=== PATIENT | male | born 1935 | race Caucasian/White ===

== ENCOUNTER 2020-02-01 14:45 | Inpatient (IN) | payer MEDICARE, OTHER ==
[~2020-02-01] VITALS: Ht 180.3 cm; Wt 79.4 kg
[2020-02-01] MEDS ORDERED: SODIUM CHLORIDE 0.9% 1000ML 1,000 ML IV STA (15:54)
[2020-02-01] MEDS ORDERED: PIPER-TAZ 3.375 GM 50 ML IV STA (15:54)
--- NOTE | 2020-02-01 16:09 | Emergency Department Note ---
History of Present Illnes History of Present Illness Chief Complaint: General Medicine Complaints History of Present Illness This is a 84 year old male . c/o redness swelling r arm since december failed out pt tx sent to ed for evbal poss admit by Dr Anju Weeks Chief Complaint Comment here for cellulitis to the right upper arm since mid December sent by Dr. Weeks for evaluation and treatment. Historian: Patient, Family Member Arrival Mode: Car Onset (how long ago): month(s) (x1 month) Severity: moderate Onset quality: gradual Duration (how long): month(s) (x 1 month) Timing of current episode: constant Progression: worsening Context: recent illness, recent surgery, recent immobilization, recent travel, trauma/injury, new medications, hx of DVT/PE, non-compliance w/ medications, other Relieving factors: none Exacerbating factors: none Associated symptoms: denies other symptoms Treatments prior to arrival: other (clinda doxy) (EMMANUEL ROMERO NP) Past Medical/Family History Physician Review I have reviewed the patient's past medical and family history. Any updates have been documented here. (EMMANUEL ROMERO NP) Past Medical History Recent Fever: No Clinical Suspicion of Infectio: No New/Unexplained Change in Ment: No Past Medical History: Hypertension, Diabetes, Hyperlipedemia Past Surgical History: None (EMMANUEL ROMERO NP) Social History Smoking Cessation: Never Smoker Alcohol Use: None Any Illegal Drug Use: No TB Exposure/Symptoms: No (EMMANUEL ROMERO NP) Family History Family history of heart diseas: No (EMMANUEL ROMERO NP) Other Any Pre-Existing Lines (PICC,: No (EMMANUEL ROMERO NP) Review of Systems Review of Systems Constitutional: no symptoms EENTM: no symptoms Cardiovascular: no symptoms Respiratory: no symptoms Gastrointestinal: no symptoms Genitourinary: no symptoms Musculoskeletal: other (c/o redness swelling to r arm x 1 month exam c/w cellulitis ) Neurological: no symptoms Psychological: no symptoms Endocrine: no symptoms Hematological/Lymphatic: no symptoms Review of other systems All other systems reviewed and negative. (EMMANUEL ROMERO NP) Physical Exam Related Data Allergies: Coded Allergies: No Known Allergies (Unverified , 02/01/20) Triage Vital Signs Vital Signs Date Time Temp Pulse Resp B/P (MAP) Pulse Ox O2 Delivery O2 Flow Rate FiO2 02/01/20 15:52 98.5 77 16 109/59 98 Vital signs reviewed: Yes (EMMANUEL ROMERO NP) Physical Exam CONSTITUTIONAL Constitutional: well-developed, well-nourished HENT HENT: normocephalic, atraumatic, oropharynx clear/moist, nose normal HENT L/R: left ext ear normal, right ext ear normal EYES Eyes: PERRL, conjunctivae normal NECK Neck: ROM normal PULMONARY Pulmonary: effort normal, breath sounds normal CARDIOVASCULAR Cardiovascular: regular rhythm, heart sounds normal, capillary refill normal, normal rate GASTROINTESTINAL Abdominal: soft, nontender, bowel sounds normal GENITOURINARY Genitourinary: exam deferred SKIN Skin: warm, erythema, other (noted redness swelling r uper and forearm exam c/w cellultis - hx pw in december and been being tx out pt for redness swelling failed tx sent to ed today by Dr Anju Weeks for eval ) MUSCULOSKELETAL Musculoskeletal: ROM normal NEUROLOGICAL Neurological: alert, oriented x 3, no gross motor or sensory deficits PSYCHOLOGICAL Psychological: mood/affect normal, judgement normal (EMMANUEL ROMERO NP) Results Imaging Impressions Procedure: [id number] DX/CHEST SINGLE (PORTABLE) Exam Date: Exam Time: REPORT STATUS: Signed X-ray chest AP portable Comparison: None History: Right arm swelling Findings: Central airways unremarkable. Heart size normal. Aorta is slightly atherosclerotic. No pleural effusion. No pneumothorax. No focal significant lung disease. Pulmonary ivanna unremarkable. Visualized skeletal structures and extrathoracic soft tissues unremarkable. Impression: No acute cardiopulmonary disease. Signed by: Shantel Gutiérrez MD on 02/01/2020 4:44 PM Dictated By: SHANTEL GUTIÉRREZ MD 43 Transcribed By: KERRIE on 02/01/201643 (EMMANUEL ROMERO NP) Critical Care Time Subsequent provider I assumed direction of critical care for this patient from another provider of my specialty. (EMMANUEL ROMERO NP) Assessment & Plan Reassessment Reassessment time: 16:05 Reassessment 84y m presented to ed c/o redness swelling r arm failed out pt tx - Dr Chung in eval pt status - discussed plan of care and need for admit - lab ekg cxr lactic bld cultures ordered - pt medicated w/ zosyn vanc in ed (EMMANUEL ROMERO NP) Assessment & Plan Final Impression: (1) Cellulitis of arm, right Assessment & Plan Dr Chung spoke w/ Dr Ross will admit (EMMANUEL ROMERO NP) Depart Disposition: ADMITTED Last Vital Signs Date Time Temp Pulse Resp B/P (MAP) Pulse Ox O2 Delivery O2 Flow Rate FiO2 02/01/20 15:52 98.5 77 16 109/59 98 (EMMANUEL ROMERO NP) Medications in the ED Sodium Chloride 1,000 ml @ 0 mls/hr Q0M STAT IV ; Start 02/01/20 at 15:54; Stop 02/01/20 at 15:55 Piperacillin Sod/ Tazobactam Sod 50 ml @ 50 mls/hr ONCE STAT IV ; Start 02/01/20 at 15:54; Stop 02/01/20 at 16:53 Vancomycin HCl 250 ml @ 167 mls/hr ONCE ONCE IV ; Start 02/01/20 at 17:00; Stop 02/01/20 at 18:29 (EMMANUEL ROMERO NP) Physician Attestation Provider Attestation The patient's history, exam findings, diagnostics, and a summary of any interventions or procedures was reviewed in detail with our [place]. I personally interviewed and examined the patient, and I have reviewed and agree with the HPI andexam. My personal exam shows almost circumferential swelling right arm with erythema/increased warmth from mid-upper arm to hand. I confirm the diagnosis as documented by the [place]. I have reviewed and agree with the care plan articulated in the disposition section. (NAVIN CHUNG MD) EMMANUEL ROMERO NP February 01, 2020 16:09 NAVIN CHUNG MD February 01, 2020 17:55
[2020-02-01] MEDS ORDERED: DEXTROSE 50% SYRINGE 50 ML IV PRN (16:15)
[2020-02-01] MEDS ORDERED: ONDANSETRON HCL INJ 2MG/ML 2ML 2 MG/ML VIAL IV PRN ×2 (16:15→20:30)
[2020-02-01] MEDS ORDERED: SODIUM CHLORIDE 0.9% 1000ML 1,000 ML IV SCH (16:15)
[2020-02-01] MEDS: INSULIN LISPRO 100 UNIT/1 ML 3ML VIAL SQ SCH ×2 (16:30→21:00)
--- NOTE | 2020-02-01 16:48 | Diagnostic Imaging Report ---
X-ray chest AP portable Comparison: None History: Right arm swelling Findings: Central airways unremarkable. Heart size normal. Aorta is slightly atherosclerotic. No pleural effusion. No pneumothorax. No focal significant lung disease. Pulmonary ivanna unremarkable. Visualized skeletal structures and extrathoracic soft tissues unremarkable. Impression: No acute cardiopulmonary disease. Signed by: Armen Marin MD on 02/01/2020 4:44 PM
[2020-02-01] MEDS ORDERED: VANCOMYCIN 1GM/NS 250 ML 250 ML IV ONE (17:00)
[2020-02-01 17:43] LABS: BASOPHILS % 0.2 % (0.0-1.0); EOSINOPHILS # (AUTO) 0.9 (0.0-0.4); EOSINOPHILS % 7.5 % (0.0-6.0); HEMATOCRIT 41.5 % (38.2-49.6); HEMOGLOBIN 13.4 g/dL (14.0-18.0); LYMPHOCYTES % 16.7 % (18.0-39.1); MEAN CORPUSCULAR HEMOGLOBIN 29.5 pg (28-32); MEAN CORPUSCULAR HGB CONC 32.3 g/dL (31-35); MEAN CORPUSCULAR VOLUME 91.4 fL (81-99); MONOCYTES % 8.5 % (4.4-11.3); NEUTROPHILS # (AUTO) 7.8 (2.1-6.9); NEUTROPHILS % 66.7 % (38.7-80.0); PLATELET COUNT 319 x10e3/uL (140-360); RED BLOOD COUNT 4.54 x10e6/uL (4.3-5.7); RED CELL DISTRIBUTION WIDTH 13.7 % (11.7-14.4)
[2020-02-01 18:02] LABS: ALBUMIN 3.2 g/dL (3.5-5.0); ALBUMIN/GLOBULIN RATIO 1.1 (0.8-2.0); ANION GAP 15.2 mmol/L (8-16); CREATININE, SERUM 1.56 mg/dL (0.72-1.25); POTASSIUM 4.2 mmol/L (3.5-5.1)
[2020-02-01 18:05] LABS: INR 1.1; PROTHROMBIN TIME 14.9 seconds (11.9-14.5)
[2020-02-01 18:06] LABS: PARTIAL THROMBOPLASTIN TIME 28.1 seconds (23.8-35.5)
[2020-02-01 18:09] LABS: CREATINE KINASE MB 6.8 ng/mL (0-5.0)
[2020-02-01 18:11] LABS: B-TYPE NATRIURETIC PEPTIDE2 15.6 pg/mL (0-100)
--- NOTE | 2020-02-01 20:05 | NUR ---
Patient arrived to the unit from ED as a new pt with admitting dx of Cellulitis on right arm. Pt has received 2 IV antibiotics (Vancomycin 1gm and Zosyn 3.375gm) in ED. Pt alert and oriented x3. Ambulatory in room prn. On IVF (NS at 100ml/hr). Right arm noticeably weeping serous fluid and is being elevated with pillow and wrapped with towel while in bed. Call burleson within reach. Will monitor closely.
[2020-02-01 20:07] VITALS: BP_SYST 105; BP_SYST 116; BP_DIAS 54; BP_DIAS 73
[2020-02-01] MEDS ORDERED: DOCUSATE SODIUM 100 MG CAP PO PRN (20:30)
[2020-02-01 21:00] VITALS: BP 105/73
[2020-02-01] MEDS ORDERED: ZOLPIDEM TARTRATE 5 MG TAB PO PRN (21:00)
[2020-02-01] MEDS ORDERED: LISINOPRIL2.5 MG PO (22:34)
[2020-02-01] MEDS ORDERED: METFORMIN HCL500 M2 PO (22:34)
[2020-02-01] MEDS ORDERED: ATORVASTATIN CA20 MG PO (22:34)
[2020-02-01] MEDS ORDERED: CLINDAMYCIN HC150 MG PO (22:34)
[2020-02-01] MEDS ORDERED: MECLIZINE HCL12.5 MG PO (22:34)
[2020-02-01] MEDS ORDERED: DOXYCYCLINE HY100 MG PO (22:34)
[2020-02-02] VITALS (8 sets, daily range): BP systolic 104–129; BP diastolic 52–65
[2020-02-02 00:28] LABS: BILIRUBIN,URINE NEGATIVE (NEGATIVE); CLARITY,URINE CLEAR (CLEAR); COLOR,URINE YELLOW (YELLOW); KETONES,URINE NEGATIVE (NEGATIVE); LEUKOCYTE ESTERASE ,URINE NEGATIVE (NEGATIVE); NITRITE,URINE NEGATIVE (NEGATIVE); PROTEIN,URINE DIPSTICK NEGATIVE (NEGATIVE); URINE UROBILINOGEN 0.2 mg/dL (0.2 - 1)
[2020-02-02 00:42] LABS: BACTERIA,URINE FEW /HPF; EPITHELIAL CELLS,URINE FEW /LPF
[2020-02-02 00:43] LABS: CYSTINE CRYSTALS,URINE MANY
[2020-02-02 00:51] LABS: CREATINE KINASE MB 4.6 ng/mL (0-5.0)
[2020-02-02 06:36] LABS: BASOPHILS % 0.2 % (0.0-1.0); EOSINOPHILS # (AUTO) 1.2 (0.0-0.4); EOSINOPHILS % 12.5 % (0.0-6.0); HEMATOCRIT 34.8 % (38.2-49.6); HEMOGLOBIN 11.2 g/dL (14.0-18.0); LYMPHOCYTES # (AUTO) 2.2 (1.0-3.2); LYMPHOCYTES % 23.6 % (18.0-39.1); MEAN CORPUSCULAR HEMOGLOBIN 29.2 pg (28-32); MEAN CORPUSCULAR HGB CONC 32.2 g/dL (31-35); MEAN CORPUSCULAR VOLUME 90.9 fL (81-99); MONOCYTES % 10.9 % (4.4-11.3); NEUTROPHILS # (AUTO) 4.9 (2.1-6.9); NEUTROPHILS % 52.5 % (38.7-80.0); PLATELET COUNT 252 x10e3/uL (140-360); RED BLOOD COUNT 3.83 x10e6/uL (4.3-5.7); RED CELL DISTRIBUTION WIDTH 13.7 % (11.7-14.4)
[2020-02-02] MEDS ORDERED: ONDANSETRON HCL INJ 2MG/ML 2ML 2 MG/ML VIAL IV PRN (06:45)
[2020-02-02] MEDS ORDERED: ACETAMINOPHEN 325 MG TAB PO PRN (06:45)
[2020-02-02] MEDS ORDERED: DOCUSATE SODIUM 100 MG CAP PO PRN (06:45)
[2020-02-02] MEDS ORDERED: ZOLPIDEM TARTRATE 5 MG TAB PO PRN (06:45)
--- NOTE | 2020-02-02 06:47 | NUR ---
H&P cc: arm infection HPI: 84yoM, PCP Dr.S. Weeks, developed right arm infection, has rec'd antibiotics orally for past 2 weeks, but symptoms persist, so pt came to hospital. PMH: DM2, HLD, PSHx: hernia Allergies; see emr FH/SH; ; no cigs meds; see MAR ROS: no cp/sob/back pain/HEREDIA/confusion/focal limb weakness/vision changes v/s; revd PE tired appearing anicteric ns1s2 mod bs soft nt nd right arm with erythema/warmth/tenderness; extensive area from biceps to forearm. no skin breakdown no leg edema skin dry n. affect a&ox3; bird labs/meds revd A/P: Cellulitis right arm- failed outpt therapy; vanco/ceftriaxone; ID eval JENNIFER vs CKD- hold aceI; low dose fluid UTI- IV ceftriaxone DM2- hab1c/lipids HLD- statin Prop: scd; pepcid dispo: Jamie Ross MD, PhD.
--- NOTE | 2020-02-02 07:10 | NUR ---
Received bedside shift report with patient lying in bed with eyes open. Respiration even and unlabored without SOB. Call light in reach.
[2020-02-02 07:14] LABS: ALANINE AMINOTRANSFERASE 10 IU/L (0-55); ALBUMIN 2.5 g/dL (3.5-5.0); ALBUMIN/GLOBULIN RATIO 1.2 (0.8-2.0); ALKALINE PHOSPHATASE 81 IU/L (40-150); ANION GAP 11.8 mmol/L (8-16); BLOOD UREA NITROGEN 15 mg/dL (7-26); BUN/CREATININE RATIO 17 (6-25); CALCIUM 7.9 mg/dL (8.4-10.2); CARBON DIOXIDE 20 mmol/L (22-29); CHLORIDE 111 mmol/L (98-107); CREATININE, SERUM 0.87 mg/dL (0.72-1.25); EST GLOMERULAR FILTRATION RATE > 60 ML/MIN (60-); GLUCOSE 77 mg/dL (74-118); POTASSIUM 3.8 mmol/L (3.5-5.1); SODIUM 139 mmol/L (136-145)
[2020-02-02] MEDS: INSULIN LISPRO 100 UNIT/1 ML 3ML VIAL SQ SCH ×4 (07:30→21:00)
[2020-02-02 07:32] LABS: CHOL/HDL RATIO 2.1 (3.9-4.7)
[2020-02-02 08:06] LABS: CREATINE KINASE MB 3.2 ng/mL (0-5.0)
[2020-02-02] MEDS ORDERED: CEFTRIAXONE SOD 1 GM/NS 50 ML 50 ML IV SCH (08:30)
[2020-02-02] MEDS: MECLIZINE HCL 12.5 MG TAB PO SCH ×2 (08:48→17:17)
[2020-02-02] MEDS: ATORVASTATIN 20 MG TAB PO SCH (08:48)
[2020-02-02] MEDS: SODIUM CHLORIDE 0.9% 1000ML 1,000 ML IV SCH (08:48)
--- OUTSIDE RECORDS SUMMARY | 2020-02-02 10:16 | XMS REPORT ---
Author Author [facility] Organization [facility] Address [address] [place] [id number] Phone Unavailable Care Team Providers Care Head Waiter/Waitress Banquet Name Role Phone JULIET Shwetha NAVIN Attphys Unavailable GILDARDO PERDOMO Admphys Unavailable Problems This patient has no known problems. Allergies, Adverse Reactions, Alerts This patient has no known allergies or adverse reactions. Medications This patient has no known medications. Procedures This patient has no known procedures. Results Test Description Test Time Test Comments Results Result Comments Source CHEST SINGLE (PORTABLE) 2020-02-01 16:43:00 [place] [address] Patient Name: DIMPLE MCKEON MR #: [id number] : 1935 Age/Sex: 84/M Req #: [id number] Adm Physician: Ordered by: EMMANUEL ROMERO PULP BLEACHER Report #: [id number] Location: ER Room/Bed: Procedure: [id number] DX/CHEST SINGLE (PORTABLE) Exam Date: Exam Time: REPORT STATUS: Signed X-ray chest AP portable Comparison: None History: Right arm swelling Findings: Central airways unremarkable. Heart size normal. Aorta is slightly atherosclerotic. No pleural effusion. No pneumothorax. No focal significant lung disease. Pulmonary ivanna unremarkable. Visualized skeletal structures and extrathoracic soft tissues unremarkable. Impression: No acute cardiopulmonary disease. Signed by: Shantel Gutiérrez MD on 02/01/2020 4:44 PM Dictated By: SHANTEL GUTIÉRREZ MD 43 Transcribed By: KERRIE on 02/01/201643 COPY TO: EMMANUEL ROMERO NP
[2020-02-02] MEDS: CEFEPIME 1GM/NS 0.9% 50 ML 50 ML IV SCH ×2 (15:24→22:00)
--- NOTE | 2020-02-02 15:44 | NUR ---
Patient is to discharge to home with home health. Discharge education given. Home prescription medication given. Verbalized understanding. PIV to right FA discontinued, catheter intact, no bleeding noted. Transported via wheelchair to private vehicle with all personal belongings taken. Addendum: 02/02/20 at 1625 by Nguyen Mireles RN Error. Wrong patient note.
[2020-02-02] MEDS: VANCOMYCIN 1GM/NS 250 ML 250 ML IV SCH (17:16)
[2020-02-02] MEDS: BALSAM PERU/CASTOR OIL 60 GM OINT...G. TP SCH (17:17)
[2020-02-02] MEDS ORDERED: VANCOMYCIN 750MG/NS 150ML IVPB 150 ML IV SCH (18:00)
--- NOTE | 2020-02-02 19:02 | NUR ---
Report given to mine shifter. Respiration even and unlabored without SOB. Denies pain. Call light in reach.
--- NOTE | 2020-02-02 19:25 | NUR ---
Patient visited in room during nursing rounds. Patient alert and oriented x3. Right arm wrapped with kerlix and appear clean and dry at this time. Pt ambulatory in room prn. On scheduled IV antibiotics. Call burleson within reach. Will monitor closely.
--- NOTE | 2020-02-02 20:34 | Consultation ---
DATE OF CONSULTATION: 02/02/2020 ID Consult REASON FOR CONSULTATION: Infection. Thank you, Dr. Ross, for asking me to see this patient. HISTORY OF PRESENT ILLNESS: The patient is an 84-year-old man referred for infection. He was sent to the emergency department by the primary care provider with cellulitis of the right upper extremity, which failed outpatient management. The patient inadvertently sustained a superficial cut of the extensor surface of the right forearm by a nail on the wall about one month ago. He decided to with triple antibiotics. Unfortunately, he developed progressive redness, itchiness, and swelling of the right upper extremity. One week later, he was evaluated by the primary care provider and treated with oral antibiotics and mupirocin cream. As you know, he has received three courses of oral antibiotics in about one month without improvement. PAST MEDICAL HISTORY: Diabetes mellitus type 2, hypertension, and hyperlipidemia. PAST SURGICAL HISTORY: Inguinal hernia repair. ALLERGIES: NO KNOWN DRUG ALLERGIES. MEDICATIONS: The current antibiotics are ceftriaxone 1 g IV piggyback every 24 hours and vancomycin 750 mg IV piggyback q.24 hours. IMMUNIZATION: He received a tetanus and diphtheria vaccine about 2-3 weeks ago. FAMILY HISTORY: Noncontributory. SOCIAL HISTORY: No alcohol or tobacco use. REVIEW OF SYSTEMS: As per history of present illness. PHYSICAL EXAMINATION: GENERAL: No acute distress. Nontoxic. VITAL SIGNS: T-max 98.5, pulse rate 70, respiratory rate 18, blood pressure 115/58, and weight 175 pounds. HEENT: Normocephalic and atraumatic. There is no icterus or injection of conjunctivae. There is no ear or nasal discharge. There is moist oral mucosa. No pharyngeal erythema or exudate. NECK: Supple. No distention of external jugular venous. LUNGS: Clear to auscultation bilaterally. HEART: With normal S1, S2. Regular. ABDOMEN: Soft and nontender. EXTREMITIES: There is a purplish discoloration of the right upper extremity extended to just below the right shoulder. There is a scratch lizet of the upper extremity as well as 2+ edema. There is no edema, clubbing, or cyanosis of the rest of the extremities. SKIN: As per extremities. ASSISTANT OCEANOGRAPHER: Awake, alert, and oriented to person, place, and time. Nonfocal. LABORATORY AND DIAGNOSTICS: WBC 9290, hemoglobin 11.2, platelets 252,000, neutrophils 52.5, lymphocytes 23.6, monocytes 10.9, eosinophils 2.5, and basophils 0.2. BUN 15 and creatinine 0.87. Hemoglobin A1c 6.3. Blood culture is pending. Chest x-ray showed no acute cardiopulmonary disease. IMPRESSION: 1. Cellulitis of the right upper extremity. 2. Diabetes mellitus type 2. 3. Eosinophilia. PLAN: 1. Check vancomycin level. 2. Change vancomycin to 1 g IV piggyback q.24 hours or switch ceftriaxone to cefepime 1 g IV piggyback q.8 hours. 3. Continue urine culture. 4. Watch out for drug eruption. MD FAUSTO Gates/MODL /[id number]
[2020-02-02] MEDS: ACETAMINOPHEN 325 MG TAB PO PRN (21:05)
[2020-02-03] VITALS (7 sets, daily range): BP systolic 110–140; BP diastolic 46–72
[2020-02-03] MEDS: ACETAMINOPHEN 325 MG TAB PO PRN (04:58)
[2020-02-03] MEDS: SODIUM CHLORIDE 0.9% 1000ML 1,000 ML IV SCH (04:58)
[2020-02-03] MEDS: CEFEPIME 1GM/NS 0.9% 50 ML 50 ML IV SCH ×3 (05:35→21:29)
--- NOTE | 2020-02-03 06:27 | NUR ---
IM- progress note O/N see below ROS: no cp/sob/back pain/HEREDIA/confusion/focal limb weakness/vision changes v/s; revd PE tired appearing anicteric ns1s2 mod bs soft nt nd right arm with erythema/warmth/tenderness; extensive area from biceps to forearm. no skin breakdown no leg edema skin dry n. affect a&ox3; bird labs/meds revd A/P: Cellulitis right arm- failed outpt therapy; vanco/ceftriaxone; ID eval JENNIFER vs CKD- hold aceI; low dose fluid UTI- IV ceftriaxone DM2- hab1c/lipids HLD- statin Prop: scd; pepcid dispo: 02-02 Hba1c/LDL 6.3; JENNIFER improving; f/u WBC: cont care; Jamie Ross MD, PhD.
--- NOTE | 2020-02-03 07:25 | NUR ---
PATIENT SITTING AT BED SIDE WATCHING TV, NO COMPLAIN VOICED. REDNESS, SWELLING AND WEEPING TO RIGHT ARM. BED IN LOWER POSITION, CALL LIGHT AT REACH.
[2020-02-03] MEDS: INSULIN LISPRO 100 UNIT/1 ML 3ML VIAL SQ SCH ×4 (07:30→21:30)
[2020-02-03] MEDS: MECLIZINE HCL 12.5 MG TAB PO SCH ×2 (09:06→17:05)
[2020-02-03] MEDS: ATORVASTATIN 20 MG TAB PO SCH (09:06)
--- NOTE | 2020-02-03 11:46 | NUR ---
WOUND CARE NURSE AT THE BED FOR ASSESSMENT.
[2020-02-03] MEDS: BALSAM PERU/CASTOR OIL 60 GM OINT...G. TP SCH ×2 (11:56→17:05)
--- NOTE | 2020-02-03 13:47 | NUR ---
WOUND CARE INITIAL CONSULT FOR 84 YO MALE ADMITTED TO [facility] WITH A PRESENT HX ILLNESS OF CELLULITIS OF RIGHT ARM. HUANG 20 ON CONSERVATIVE PUP STATUS AND INTERVENTIONS LABS: WBC- 9.29 HGB- 11.2 HEMOGLOBIN A1C 6.3 MEDS : CEFEPIME HCL AND VANCOMYCIN HCL- SEE EMR FOR DOSE. MICRO: URINE CULTURE PENDING BLOOD CULTURE PRELIMINARY NO GROWTH IMAGING: CHEST XRAY IMPRESSION NO ACUTE CARDIOPULMONARY DISEASE. SKIN ASSESSMENT COMPLETE, PATIENT PRESENTS WITH CELLULITIS OF RIGHT ARM; CIRCUMFERENTIAL SWELLING, HARDENING OF SKIN, RED AND WARMEST PRESENT TO RIGHT ARM WITH DRY PATCHES OF SEROUS DRAINAGE. PT DENIES PAIN AT THE TIME. RECOMMENDATIONS: NURSING TO CLEAN RIGHT ARM WITH NORMAL SALINE, PAT DRY AREA WITH 4X4 GAUZE, APPLY MAXORB AG, AND COVER ARM WITH ABD PADS AND LOOSELY SECURE PADS WITH KERLIX DAILY. NURSING TO CONTINUE TO MONITOR PATIENT AND KEEP SKIN CLEAN AND FREE FROM STOOL OR IRRITATING MOISTURE AND CONTINUE TO FOLLOW CONSERVATIVE PUP INTERVENTIONS DAILY. NURSING TO CONTINUE REPOSITION PT SIDE TO SIDE EVERY TWO HOURS AND TO ENCOURAGE PT TO SELF REPOSITION IN BED NEEDED. NURSING TO CONTINUE TO APPLY REGULAR VISCO MATTRESS. NURSING TO CONTINUE TO OFFLOAD FEET AND HEELS AT ALL TIMES WITH PILLOW SUSPENSION WHEN IN BED. NURSING TO ASSIST PT OUT OF BED FOR MEALS AND NEEDED. NURSING TO CONTINUE TO ASSIST WITH PT NUTRITIONAL SUPPLEMENTS TO ENSURE PROPER REQUIREMENTS FOR HEALING. NURSING TO RE- CONSULT WOUND CARE NEEDED. Addendum: 02/03/20 at 1351 by Hailey Irwin RN Amended: Links added.
[2020-02-03] MEDS: VANCOMYCIN 1GM/NS 250 ML 250 ML IV SCH (17:05)
--- NOTE | 2020-02-03 19:20 | NUR ---
RECEIVED REPORT FROM DAY NURSE. PATIENT IS RESTING COMFORTABLY IN THE BED. BED IS IN THE LOWEST POSITION AND CALL LIGHT IS WITHIN REACH.
[2020-02-04] VITALS (8 sets, daily range): BP systolic 109–126; BP diastolic 57–69
[2020-02-04] MEDS: SODIUM CHLORIDE 0.9% 1000ML 1,000 ML IV SCH ×2 (00:20→01:00)
--- NOTE | 2020-02-04 05:08 | NUR ---
IM- progress note O/N see below ROS: no cp/sob/back pain/HEREDIA/confusion/focal limb weakness/vision changes v/s; revd PE tired appearing anicteric ns1s2 mod bs soft nt nd right arm with erythema/warmth/tenderness; extensive area from biceps to forearm. no skin breakdown no leg edema skin dry n. affect a&ox3; bird labs/meds revd A/P: Cellulitis right arm- failed outpt therapy; vanco/ceftriaxone; ID eval JENNIFER vs CKD- hold aceI; low dose fluid UTI- IV ceftriaxone DM2- hab1c/lipids HLD- statin Prop: scd; pepcid dispo: 02-02 Hba1c/LDL 6.3; JENNIFER improving; f/u WBC: cont care; 02-03 renal fn better; but WBC high; Jamie Ross MD, PhD.
[2020-02-04] MEDS: CEFEPIME 1GM/NS 0.9% 50 ML 50 ML IV SCH ×3 (05:33→22:25)
--- NOTE | 2020-02-04 07:00 | NUR ---
received bedside report. pt is oob in the restroom, no s/s of distress. instructed pt to call RN for help
--- NOTE | 2020-02-04 07:06 | NUR ---
REPORT GIVEN TO DAY NURSE. PATIENT IS RESTING COMFORTABLY IN THE BED. NO DISTRESS NOTED.
[2020-02-04] MEDS: INSULIN LISPRO 100 UNIT/1 ML 3ML VIAL SQ SCH ×4 (07:30→20:24)
[2020-02-04] MEDS: MECLIZINE HCL 12.5 MG TAB PO SCH ×2 (09:13→17:26)
[2020-02-04] MEDS: ATORVASTATIN 20 MG TAB PO SCH (09:13)
[2020-02-04] MEDS: BALSAM PERU/CASTOR OIL 60 GM OINT...G. TP SCH ×2 (11:15→17:20)
[2020-02-04] MEDS: ACETAMINOPHEN 325 MG TAB PO PRN (14:44)
[2020-02-04] MEDS: VANCOMYCIN 1GM/NS 250 ML 250 ML IV SCH (17:26)
--- NOTE | 2020-02-04 19:20 | NUR ---
RECEIVED REPORT FROM DAY NURSE. PATIENT IS RESTING COMFORTABLY IN THE BED. BED IS IN THE LOWEST POSITION AND CALL LIGHT IS WITHIN REACH.
[2020-02-05] VITALS (8 sets, daily range): BP systolic 127–143; BP diastolic 58–73
[2020-02-05] MEDS: CEFEPIME 1GM/NS 0.9% 50 ML 50 ML IV SCH ×3 (04:59→21:03)
--- NOTE | 2020-02-05 06:42 | NUR ---
REPORT GIVEN TO DAY NURSE. PATIENT IS RESTING COMFORTABLY IN THE BED. NO DISTRESS NOTED.
--- NOTE | 2020-02-05 07:00 | NUR ---
received bedside report. pt is alert sitting on the edge of bed, no s/s of distress. call light within reach and instructed pt to call RN for help
[2020-02-05] MEDS: INSULIN LISPRO 100 UNIT/1 ML 3ML VIAL SQ SCH ×4 (07:30→20:01)
[2020-02-05] MEDS ORDERED: ONDANSETRON HCL 4 MG ORAL DISINTEGRATING TAB PO PRN (08:45)
[2020-02-05] MEDS: MECLIZINE HCL 12.5 MG TAB PO SCH ×2 (08:46→16:54)
[2020-02-05] MEDS: ATORVASTATIN 20 MG TAB PO SCH (08:46)
--- NOTE | 2020-02-05 08:53 | NUR ---
IM- progress note O/N see below ROS: no cp/sob/back pain/HEREDIA/confusion/focal limb weakness/vision changes v/s; revd PE tired appearing anicteric ns1s2 mod bs soft nt nd right arm with erythema/warmth/tenderness; extensive area from biceps to forearm. no skin breakdown no leg edema skin dry n. affect a&ox3; bird labs/meds revd A/P: Cellulitis right arm- failed outpt therapy; vanco/ceftriaxone; ID eval JENNIFER vs CKD- hold aceI; low dose fluid UTI- IV ceftriaxone DM2- hab1c/lipids HLD- statin Prop: scd; pepcid dispo: 02-02 Hba1c/LDL 6.3; JENNIFER improving; f/u WBC: cont care; 02-03 renal fn better; but WBC high; - cont IV abx; labs in am. Jamie Ross MD, PhD.
[2020-02-05] MEDS: BALSAM PERU/CASTOR OIL 60 GM OINT...G. TP SCH ×2 (10:00→16:55)
[2020-02-05] MEDS: SODIUM CHLORIDE 0.9% 1000ML 1,000 ML IV SCH ×2 (16:15→20:14)
[2020-02-05] MEDS: VANCOMYCIN 1GM/NS 250 ML 250 ML IV SCH (17:25)
--- NOTE | 2020-02-05 17:46 | NUR ---
per Dr. Ross' request, the dressings were left off the right arm
--- NOTE | 2020-02-05 19:22 | NUR ---
ECEIVED REPORT FROM DAY NURSE. PATIENT IS RESTING COMFORTABLY IN THE BED. BED IS IN THE LOWEST POSITION AND CALL LIGHT IS WITHIN REACH. WILL CONTINUE TO MONITOR PATIENT.
[2020-02-06 00:18] VITALS: BP 130/60
[2020-02-06] MEDS: CEFEPIME 1GM/NS 0.9% 50 ML 50 ML IV SCH ×2 (05:07→14:30)
[2020-02-06 05:29] VITALS: BP 129/51
[2020-02-06 06:07] LABS: BASOPHILS % 0.4 % (0.0-1.0); EOSINOPHILS # (AUTO) 1.2 (0.0-0.4); EOSINOPHILS % 12.2 % (0.0-6.0); HEMATOCRIT 36.9 % (38.2-49.6); HEMOGLOBIN 11.9 g/dL (14.0-18.0); LYMPHOCYTES # (AUTO) 2.2 (1.0-3.2); LYMPHOCYTES % 22.8 % (18.0-39.1); MEAN CORPUSCULAR HEMOGLOBIN 29.2 pg (28-32); MEAN CORPUSCULAR HGB CONC 32.2 g/dL (31-35); MEAN CORPUSCULAR VOLUME 90.4 fL (81-99); MONOCYTES % 10.1 % (4.4-11.3); NEUTROPHILS # (AUTO) 5.2 (2.1-6.9); NEUTROPHILS % 54.2 % (38.7-80.0); PLATELET COUNT 298 x10e3/uL (140-360); RED BLOOD COUNT 4.08 x10e6/uL (4.3-5.7); RED CELL DISTRIBUTION WIDTH 13.5 % (11.7-14.4)
[2020-02-06] MEDS ORDERED: CLEOCIN HCL150 MG PO (06:29)
[2020-02-06] MEDS ORDERED: CEFUROXIME500 MG PO (06:29)
[2020-02-06 06:39] LABS: ANION GAP 11.9 mmol/L (8-16); BLOOD UREA NITROGEN 11 mg/dL (7-26); BUN/CREATININE RATIO 15 (6-25); CALCIUM 8.2 mg/dL (8.4-10.2); CARBON DIOXIDE 24 mmol/L (22-29); CHLORIDE 107 mmol/L (98-107); CREATININE, SERUM 0.75 mg/dL (0.72-1.25); EST GLOMERULAR FILTRATION RATE > 60 ML/MIN (60-); GLUCOSE 85 mg/dL (74-118); MAGNESIUM 1.9 MG/DL (1.3-2.1); PHOSPHORUS 3.1 MG/DL (2.3-4.7); POTASSIUM 3.9 mmol/L (3.5-5.1); SODIUM 139 mmol/L (136-145)
--- NOTE | 2020-02-06 06:39 | NUR ---
REPORT GIVEN TO DAY NURSE. PATIENT IS RESTING COMFORTABLY IN THE BED. NO DISTRESS NOTED.
--- NOTE | 2020-02-06 06:40 | NUR ---
D/C summary Principal Dx: Cellulitis right arm- failed outpt therapy; vanco/ceftriaxone; ID eval JENNIFER vs CKD- hold aceI; low dose fluid UTI- IV ceftriaxone secondary Dx: DM2- hab1c/lipids HLD- statin Prop: scd; pepcid dispo: - Hba1c/LDL 6.3; JENNIFER improving; f/u WBC: cont care; 5- renal fn better; but WBC high; 5-24 cont IV abx; labs in am. d/c home on antibitics f/u pcp 2-4 days stable d/c>35mins Jamie Ross MD, PhD.
[2020-02-06 07:25] VITALS: BP 135/92
[2020-02-06] MEDS: INSULIN LISPRO 100 UNIT/1 ML 3ML VIAL SQ SCH ×2 (07:30→11:30)
--- NOTE | 2020-02-06 07:44 | NUR ---
PATIENT SITTING AT BED SIDE TALKING ON THE PHONE, NO DISTRESS NOTED. REDNESS AND SWELLING TO RIGHT ARM. BED IN LOWER POSITION, CALL LIGHT AT REACH.
[2020-02-06 07:56] VITALS: BP 135/92
[2020-02-06] MEDS: MECLIZINE HCL 12.5 MG TAB PO SCH (09:05)
[2020-02-06] MEDS: BALSAM PERU/CASTOR OIL 60 GM OINT...G. TP SCH (09:05)
[2020-02-06] MEDS: ATORVASTATIN 20 MG TAB PO SCH (09:05)
[2020-02-06] MEDS: ACETAMINOPHEN 325 MG TAB PO PRN (10:20)
--- NOTE | 2020-02-06 11:09 | NUR ---
PATIENT AMBULATED TO THE RESTROOM AND BACK TO CHAIR. CALL LIGHT AT REACH.
[2020-02-06 11:28] VITALS: BP 126/79
--- NOTE | 2020-02-06 15:20 | NUR ---
PATIENT DISCHARGED HOME. DISCHARGE INSTRUCTIONS, PRESCRIPTIONS, AND FOLLOW UP GIVEN TO PATIENT, HE VERBALIZED UNDERSTANDING. IV TO LEFT AC REMOVED WITH TIP INTACT. ALL PERSONAL ITEMS TAKEN WITH PATIENT. LEFT UNIT PER WHEEL CHAIR TO FRONT LOBBY IN STABLE CONDITION.
[2020-02-06 15:26] VITALS: BP 106/75
== END 2020-02-06 15:14 | disposition home or self-care (01) | DRG 603 ==
LOC: ER 14:45 → ERHOLD 16:16 → MED/SURG3 20:12
PROVIDERS: ADMIT Internal Medicine; ATTEND Internal Medicine
DX: L03.113 Cellulitis of right upper limb (principal); N17.9 Acute kidney failure, unspecified; N39.0 Urinary tract infection, site not specified; E11.22 Type 2 diabetes mellitus with diabetic chronic kidney disease; N18.9 Chronic kidney disease, unspecified; E78.5 Hyperlipidemia, unspecified; D72.1 Eosinophilia; Z79.84 Long term (current) use of oral hypoglycemic drugs
CPT/HCPCS: 36415; 71045; 80048; 80053; 80061; 81001; 82550; 82553; 82948; 83036; 83605; 83735; 83880; 84100; 84484; 85025; 85610; 85730; 87040; 87086; 87635; 97139; 99251; 99284; J0692; J0696; J2543; J3370; J7030